=== PATIENT | female | born 1955 | race Caucasian/White ===

== ENCOUNTER → 2016-08-01 | Outpatient (CLI) | payer BC ==
[~2016-08-01] MED LIST: ALBUAER2 INH; ASPI81TA28 PO; ATOR-26 PO; DIVA500T5 PO; DPKSR500 PO; GLC/500 PO; IMDSR60 PO; ISOS120T5 PO; LEVO1TAB33 PO; LISI-729 PO; METO25TA56 PO; NTRGSL/4 UT; VNTHFA/IN INH; ZPAK PO
[2016-08-01 12:36] LABS: ALT/SGPT 26 U/L (12-78); AST/SGOT 18 U/L (15-37); BLOOD UREA NITROGEN 8 mg/dl (7-18); BUN/CREATININE RATIO 10.3 (10-20); CALCIUM 8.9 mg/dl (8.5-10.1); CARBON DIOXIDE 30 mmol/L (21-32); CHLORIDE 109 mmol/L (98-107); CHOLESTEROL 130 mg/dl (0-200); CREATININE 0.77 mg/dl (0.60-1.20); GLUCOSE 107 mg/dl (70-99); POTASSIUM 4.2 mmol/L (3.5-5.1); SODIUM 145 mmol/L (136-145)
[2016-08-01 12:42] LABS: ALB/GLOB RATIO 1.1 (0.9-2); ALKALINE PHOSPHATASE 48 U/L (45-117); CHOLESTEROL/HDL RATIO 2.5; HDL CHOLESTEROL 52 mg/dl; LDL CHOLESTEROL CALCULATED 60 mg/dl; TRIGLYCERIDES 90 mg/dl (0-150); VERY LOW DENSITY LIPOPROT CALC 18 mg/dl
[2016-08-01 13:16] LABS: ESTIMATED AVERAGE GLUCOSE 140 mg/dl; HA1C FLAG Normal (Normal)
[2016-08-03 16:30] LABS: GLIADIN DEAMIDATED IgA AB 2 UNITS (<20); GLIADIN DEAMIDATED IgG AB 2 UNITS (<20)
== END | disposition home or self-care (01) ==
LOC: C.LAB1850 09:51
PROVIDERS: ATTEND Family Medicine
DX: D47.2 Monoclonal gammopathy (principal); E78.5 Hyperlipidemia, unspecified; I10 Essential (primary) hypertension; E11.9 Type 2 diabetes mellitus without complications; D80.2 Selective deficiency of immunoglobulin A [IgA]

== ENCOUNTER 2016-09-04 07:10 | Emergency (ER) | payer BC ==
[~2016-09-04 07:10] MED LIST changes: -DIVA500T5 PO; -ISOS120T5 PO; -VNTHFA/IN INH; -ZPAK PO
[2016-09-04] MEDS ORDERED: ASPIRIN 324 MG CHEW PO STA (07:24)
[2016-09-04] MEDS ORDERED: MoRPHine SULFATE 4 MG/ML 1 ML CARP\\VIAL IV PRN (07:30)
[2016-09-04] MEDS ORDERED: NITROGLYCERIN 0.4 MG SL PER TAB CHARGE SL PRN (07:30)
[2016-09-04 07:39] LABS: BASO % 0.2 %; BASO ABS # 0.01 K/uL (0-0.2); COMPLETE YES; EOS % 2.4 %; HEMATOCRIT 39.5 % (37-47); LYMPH % 35.3 %; LYMPH ABS # 2.25 K/uL (1.2-3.4); MEAN CELL VOLUME 89.8 fL (80-100); MEAN CORPUSCULAR HEMOGLOBIN 29.3 pg (25-34); MEAN CORPUSCULAR HGB CONC 32.7 g/dl (32-36); MEAN PLATELET VOLUME 10.8 fL (7.4-10.4); MONO % 8.5 %; NEUT % 53.6 %; PLATELET COUNT 182 K/uL (130-400); WHITE BLOOD COUNT 6.37 K/uL (4.8-10.8)
[2016-09-04] MEDS ORDERED: ASPIRIN 81 MG CHEW ONE (07:40)
--- NOTE | 2016-09-04 07:45 | EMERGENCY ROOM VISIT NOTE ---
History First contact with patient: 07:13 Chief Complaint: CHEST PAIN Stated Complaint: CHEST PAIN,LEFT ARM NUMBNESS History of Present Illness The patient is a 60 year old female who presents to the Emergency Room with complaints of chest pain that woke her from sleep at 5 AM today. She describes the pain as a dull ache, across the entire front of the chest, radiating into her left shoulder and down the arm, constant, 6/10. She did take all of her morning meds including a baby aspirin, and also took one sublingual nitroglycerin, she reports this did not improve her pain. She has associated nausea and sweats, denies shortness of breath, dizziness, syncope, vomiting. 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 She is followed by Dr. Sanchez for cardiology. Review of Systems GENERAL: Denies fevers, chills, malaise, fatigue, unintentional weight changes. HEENT: Denies dizziness, visual problems, hearing loss, tinnitus. Denies difficulty swallowing or oral lesions. PULMONARY: Denies cough, shortness of breath, sputum production or hemoptysis. CARDIOVASCULAR: + Chest pain. Denies palpitations, dyspnea on exertion, orthopnea or peripheral edema. GASTROINTESTINAL: + Nausea. Denies diarrhea, constipation, vomiting, or abdominal pain. GENITOURINARY: Denies dysuria, frequency, urgency or nocturia. NEUROLOGIC: Denies history of epilepsy, CVA, TIA or chronic headaches. MUSCULOSKELETAL: Denies history of joint tenderness/swelling. SKIN: Denies rashes or lesions. PSYCHIATRIC: Denies history of depression or mental illness. ENDOCRINE: Denies history of diabetes, thyroid disorders, abnormal hair growth or sexual dysfunction. Past Medical/Surgical History Medical Problems: (1) CHOLELITH W CHOLECYS NEC (2) DEPRESSIVE DISORDER NEC (3) Generalized epilepsy (4) TOBACCO USE DISORDER Family History FH: heart disease Social History Smoking Status: Unknown if Ever Smoked Alcohol Use: none Marital Status: Occupation Status: employed Current/Historical Medications Scheduled Albuterol Hfa (Ventolin Hfa), 2-4 PUFFS INH Q4H Aspirin (Aspirin Ec), 81 MG PO DAILY Atorvastatin (Lipitor), 80 MG PO DAILY Azithromycin (Azithromycin), 1 DOSE PO UD Divalproex Sodium (Depakote Delay Rel), 500 MG PO BID Isosorbide Mononitrate Ext Rel (Imdur Ext Rel), 120 MG PO DAILY Lisinopril (Zestril), 2.5 MG PO DAILY Metformin Hcl (Glucophage), 500 MG PO BID Metoprolol Tartrate (Lopressor) (Lopressor), 25 MG PO BID Nitroglycerin (Nitrostat), 0.4 MG UT prn Allergies Coded Allergies: Amoxicillin (Unverified Allergy, Intermediate, RASH, 09/04/16) Clavulanic Acid (Unverified Allergy, Intermediate, RASH, 09/04/16) Hydrocodone (Unverified Allergy, Intermediate, N/V/D AND ITCHY, 09/04/16) Sulfa Antibiotics (Verified Allergy, Unknown, ., 09/04/16) Aspirin (Verified Adverse Reaction, Unknown, Takes Depakote (POTENTIAL DRUG INTERACTION), 09/04/16) Physical Exam Vital Signs Date Time Temp Pulse Resp B/P Pulse Ox O2 Delivery O2 Flow Rate FiO2 09/04/16 13:44 36.6 70 18 115/69 96 09/04/16 11:47 70 18 115/69 96 Nasal Cannula 2.0 09/04/16 09:00 68 18 126/79 93 Nasal Cannula 2.0 09/04/16 08:02 96 Nasal Cannula 2.0 09/04/16 08:01 71 18 134/79 96 Nasal Cannula 2.0 09/04/16 07:55 74 09/04/16 07:50 93 Room Air 09/04/16 07:49 73 18 133/79 93 Room Air 09/04/16 07:43 70 18 138/84 93 Room Air 09/04/16 07:21 95 Room Air 09/04/16 07:16 36.6 76 20 169/84 94 Room Air Physical Exam CONSTITUTIONAL: No acute distress. Well appearing and well nourished. Alert and oriented X 4 with normal affect. HEENT: Normocephalic, atraumatic. Pupils equal, round and reactive to light, EOMI. TMs normal. Pharynx normal. Moist mucous membranes. NECK: Supple, full active range of motion without discomfort. RESPIRATORY: Clear to auscultation bilaterally with no wheezing, crackles, rhonchi or stridor. Equal expansion bilaterally. CARDIOVASCULAR: Regular rate and rhythm with no rubs or gallops. + 2/6 systolic murmur heard best at the right sternal border. Normal peripheral perfusion. No edema. GASTROINTESTINAL: Soft, nontender, nondistended. Bowel sounds present in all quadrants. MUSCULOSKELETAL: Full range of motion of all joints without discomfort. INTEGUMENTARY: No rash or other significant dermatologic conditions noted. NEUROLOGIC: Cranial nerves II-XII grossly intact. No focal neurologic deficits noted. Medical Decision & Procedures ER Provider Diagnostic Interpretation: CHEST ONE VIEW PORTABLE CLINICAL HISTORY: Atypical chest pain COMPARISON STUDY: 06/04/2015 FINDINGS: The cardiac and mediastinal contours are normal. There is no evidence of focal pulmonary consolidation. There is no evidence of failure. No pleural effusions are visualized.[ Differential attenuation of the hemithoraces is felt to be related to technical factors. IMPRESSION: AP portable study. No acute findings. Laboratory Results 09/04/16 07:20 Red Blood Count 4.40, Mean Corpuscular Volume 89.8, Mean Corpuscular Hemoglobin 29.3, Mean Corpuscular Hemoglobin Concent 32.7, Mean Platelet Volume 10.8, Neutrophils (%) (Auto) 53.6, Lymphocytes (%) (Auto) 35.3, Monocytes (%) (Auto) 8.5, Eosinophils (%) (Auto) 2.4, Basophils (%) (Auto) 0.2, Neutrophils # (Auto) 3.42, Lymphocytes # (Auto) 2.25, Monocytes # (Auto) 0.54, Eosinophils # (Auto) 0.15, Basophils # (Auto) 0.01 09/04/16 07:20 Test 09/04/16 07:20 09/04/16 11:31 White Blood Count 6.37 K/uL (4.8-10.8) Red Blood Count 4.40 M/uL (4.2-5.4) Hemoglobin 12.9 g/dL (12.0-16.0) Hematocrit 39.5 % (37-47) Mean Corpuscular Volume 89.8 fL (80-100) Mean Corpuscular Hemoglobin 29.3 pg (25-34) Mean Corpuscular Hemoglobin Concent 32.7 g/dl (32-36) Platelet Count 182 K/uL (130-400) Mean Platelet Volume 10.8 fL (7.4-10.4) Neutrophils (%) (Auto) 53.6 % Lymphocytes (%) (Auto) 35.3 % Monocytes (%) (Auto) 8.5 % Eosinophils (%) (Auto) 2.4 % Basophils (%) (Auto) 0.2 % Neutrophils # (Auto) 3.42 K/uL (1.4-6.5) Lymphocytes # (Auto) 2.25 K/uL (1.2-3.4) Monocytes # (Auto) 0.54 K/uL (0.11-0.59) Eosinophils # (Auto) 0.15 K/uL (0-0.5) Basophils # (Auto) 0.01 K/uL (0-0.2) RDW Standard Deviation 45.6 fL (36.4-46.3) RDW Coefficient of Variation 13.8 % (11.5-14.5) Immature Granulocyte % (Auto) 0.0 % Immature Granulocyte # (Auto) 0.00 K/uL (0.00-0.02) Prothrombin Time 10.6 SECONDS (9.0-12.0) Prothromb Time International Ratio 1.0 (0.9-1.1) Activated Partial Thromboplast Time 24.5 SECONDS (21.0-31.0) Partial Thromboplastin Ratio 0.9 Anion Gap 7.0 mmol/L (3-11) Estimated GFR () 90.1 Estimated GFR (Non- 77.8 BUN/Creatinine Ratio 20.3 (10-20) Calcium Level 8.5 mg/dl (8.5-10.1) Total Bilirubin 0.5 mg/dl (0.2-1) Direct Bilirubin 0.1 mg/dl (0-0.2) Aspartate Amino Transf (AST/SGOT) 13 U/L (15-37) Alanine Aminotransferase (ALT/SGPT) 22 U/L (12-78) Alkaline Phosphatase 46 U/L (45-117) Pro-B-Type Natriuretic Peptide 256 pg/ml (0-900) Total Protein 6.5 gm/dl (6.4-8.2) Albumin 3.6 gm/dl (3.4-5.0) Lipase 199 U/L (73-393) Bedside Troponin I 0.000 ng/ml (0-0.045) Medications Administered Medications (Trade) Dose Ordered Sig/Crescencio Route Start Time Stop Time Status Last Admin Dose Admin Nitroglycerin (Nitrostat Tab) 0.4 mg Q5M PRN SL 09/04/16 07:30 09/04/16 14:12 DC 09/04/16 07:42 0.4 MG Morphine Sulfate (MoRPHine SULFATE INJ) 4 mg Q1H PRN IV 09/04/16 07:30 09/04/16 14:12 DC 09/04/16 07:59 4 MG Aspirin (Aspirin Chew) 243 mg STK-MED ONCE .ROUTE 09/04/16 07:40 09/04/16 07:41 DC 09/04/16 07:42 243 MG ECG Indication: chest pain Rate (beats per minute): 76 Rhythm: normal sinus Findings: T-wave inversion (isolated to lead III), no ectopy Change: no significant change (06/05/2015) Medical Decision CC: Patient presenting with complaint of chest pain Interpretation of Labs: POC troponins x 3 are negative. Differential Diagnosis: Includes, but not limited to acute coronary syndrome, PE , pneumothorax, pericarditis, myocarditis, endocarditis, anxiety, musculoskeletal pain, GERD, costochondritis, pneumonia, among others. Summary: Patient was evaluated at bedside, history of physical exam performed. She is alert and in no acute distress. She complains of 6/10 dull aching chest pain that radiates down the left arm. Orders were placed at bedside for labs, EKG, chest x-ray to evaluate for acute coronary syndrome. Patient discussed with Dr. Hyatt, who agrees with my assessment and plan. Patient reassessed after morphine and SL nitroglycerin, she states the chest pain did not improve after nitroglycerin, but has improved greatly after the morphine, currently rates 2/10. I spoke with Dr. Turner, cardiology, who requested an additional troponin level at this time (11 AM), which will be 6 hours since onset of chest pain. Patient again reassessed, now reports her chest pain is fully resolved. Repeat troponin at 6 hours after onset of pain is also negative. I discussed with Dr. Turner, who has seen the patient, he does not believe stress test is warranted at this time, recommends discharge home and outpatient follow-up. Patient updated on all results and plan for discharge, she verbalized understanding and is in agreement. Stable at time of discharge. Consults Time Called: 1100 Consulting Physician: Dr. Turner, Cardiology Patient was seen and evaluated by Dr. Turner, he feels the patient's chest pain is atypical and not the way that she presented with her previous WI. He also feels that she has been adequately ruled out with 3 negative troponins and a negative EKG today and may be safely discharged home with outpatient follow-up. Impression Primary Impression: Acute chest pain Departure Information Dispostion Home / Self-Care Condition GOOD Referrals Lawanda Parson DO (PCP) Patient Instructions ED Chest Pain Atypical Unkn Cause, My [facility] Additional Instructions Follow-up with your PCP in the next few days. Plan to follow-up with your cnmt as well. Please return to the ER for worsening symptoms, including return or worsening chest pain, shortness of breath, palpitations, severe dizziness or passing out, vomiting or coughing up blood, fever/chills/feeling ill, or any other concerns.
[2016-09-04 07:47] LABS: PARTIAL THROMBOPLASTIN RATIO 0.9; PROTHROMBIN TIME (PATIENT) 10.6 SECONDS (9.0-12.0)
[2016-09-04] MEDS ORDERED: ZPAK PO (07:49)
[2016-09-04] MEDS ORDERED: ISOS120T5 PO (07:51)
[2016-09-04] MEDS ORDERED: DIVA500T5 PO (07:51)
[2016-09-04] MEDS ORDERED: VNTHFA/IN INH (07:51)
--- NOTE | 2016-09-04 07:54 | DIAGNOSTIC IMAGING REPORT ---
CHEST ONE VIEW PORTABLE CLINICAL HISTORY: Atypical chest pain COMPARISON STUDY: 06/04/2015 FINDINGS: The cardiac and mediastinal contours are normal. There is no evidence of focal pulmonary consolidation. There is no evidence of failure. No pleural effusions are visualized.[ Differential attenuation of the hemithoraces is felt to be related to technical factors. IMPRESSION: AP portable study. No acute findings. Electronically signed by: Bo Breen M.D. 09/04/2016 7:52 AM Dictated Date/Time: 09/04/2016 7:52 AM
[2016-09-04 07:57] LABS: ALT/SGPT 22 U/L (12-78); AST/SGOT 13 U/L (15-37); BLOOD UREA NITROGEN 17 mg/dl (7-18); BUN/CREATININE RATIO 20.3 (10-20); CALCIUM 8.5 mg/dl (8.5-10.1); CARBON DIOXIDE 29 mmol/L (21-32); CHLORIDE 110 mmol/L (98-107); CREATININE 0.82 mg/dl (0.60-1.20); GLUCOSE 133 mg/dl (70-99); SODIUM 146 mmol/L (136-145)
[2016-09-04 08:02] VITALS: O2SAT 96
[2016-09-04 08:02] LABS: ALKALINE PHOSPHATASE 46 U/L (45-117)
[2016-09-04 13:44] VITALS: BP 115/69; PULSE 70; TEMP 36.6; O2SAT 96
== END 2016-09-04 13:46 | disposition home or self-care (01) ==
LOC: C.EDB 07:12
DX: R07.89 Other chest pain (principal); F32.9 Major depressive disorder, single episode, unspecified; G40.909 Epilepsy, unspecified, not intractable, without status epilepticus; F17.200 Nicotine dependence, unspecified, uncomplicated; Z79.82 Long term (current) use of aspirin; Z79.4 Long term (current) use of insulin; Z79.899 Other long term (current) drug therapy; Z88.1 Allergy status to other antibiotic agents; Z88.2 Allergy status to sulfonamides; Z88.5 Allergy status to narcotic agent; Z88.6 Allergy status to analgesic agent; Z88.8 Allergy status to other drugs, medicaments and biological substances; Z82.49 Family history of ischemic heart disease and other diseases of the circulatory system

== ENCOUNTER 2017-03-02 15:33 | Emergency (ER) | payer OTHER, BC ==
[~2017-03-02] VITALS: Ht 167.6 cm; Wt 110.3 kg
[~2017-03-02 15:33] MED LIST changes: -ALBUAER2 INH; +DIVA500T5 PO; -DPKSR500 PO; -IMDSR60 PO; +ISOS120T5 PO; -LEVO1TAB33 PO; +VNTHFA/IN INH; +ZPAK PO
[2017-03-02 15:48] VITALS: BP 174/93; TEMP 36.5; Ht 167.6 cm; Wt 110.3 kg
[2017-03-02] MEDS ORDERED: LIDOCAINE/EPINEPHRINE 1% 20 ML VIAL INFIL ONE (16:15)
[2017-03-02] MEDS ORDERED: DIPHTHERIA/TETANUS/PERTUSSIS 0.5 ML SYR/VIAL IM. ONE (16:15)
--- NOTE | 2017-03-02 16:59 | EMERGENCY ROOM VISIT NOTE ---
ED Visit Note First contact with patient: 15:52 CHIEF COMPLAINT: Arm laceration HISTORY OF PRESENT ILLNESS: This 61 year old female patient presents to the emergency department approximately 30 minutes after they cut the right arm on a broken soup mug which was in the trash. 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 She states she was picking up a bag to take out trash, when the bowl cut through the bag and cut her arm. This incident did happen at work. There is significant bleeding and there is mild pain. The patient denies any other injuries. The patient rates the pain as constant and 5/10. The patient's tetanus shot is not up to date. REVIEW OF SYSTEMS: A 6 system review of systems was completed with positives and pertinent negatives listed in the HPI. ALLERGIES: Augmentin, Hydrocodone, Sulfa MEDICATIONS: Please see list. PMH: Please see list. SOCIAL HISTORY: The patient lives locally with family. She denies drug, alcohol , tobacco use. PHYSICAL EXAM: Vital Signs: Reviewed Nurse's notes, vital signs stable. GENERAL : This is a 61-year-old white female, in no acute distress, well-developed, well -nourished. Skin: There is a 3 cm long laceration on the anterior aspect of the forearm. The edges gape apart without retraction. There is no foreign material in the wound and it looks clean. There is mild active bleeding. No deep structures such as tendons, bones, or significant blood vessels are seen in the base of the wound. Strength 5/5 of the right upper extremity. Capillary refill less than two seconds. Normal sensation to light and sharp touch. EMERGENCY DEPARTMENT COURSE: I examined the patient. Verbal consent was obtained to perform the procedure. Using sterile technique the wound was cleansed with Betadine. The area was sterilely draped. 6 ml of 1% lidocaine with epinephrine was used to anesthetize the laceration on the arm. Once the patient was anesthetized, the wound was copiously irrigated under pressure with sterile saline. The wound was explored and was as described above. The laceration was repaired using 9 simple interrupted 5-0 nylon sutures with the wound edges being well approximated. The patient tolerated the procedure well. Hemostasis was achieved. The area was cleaned with sterile saline and dressed with bacitracin ointment and bandage. The patient was given Tdap immunization. The patient was discharged home in good condition. I attest that I have personally reviewed the patient's current medication list. Patient was found to have normal blood pressure on screening and does not require follow-up. DIFFERENTIAL DIAGNOSIS: Laceration, abrasion, avulsion, tendon or muscle injury , and others DIAGNOSIS: Arm laceration Problem List Medical Problems: (1) CHOLELITH W CHOLECYS NEC Status: Resolved (2) DEPRESSIVE DISORDER NEC Status: Chronic (3) Generalized epilepsy Status: Chronic (4) TOBACCO USE DISORDER Status: Chronic Current/Historical Medications Scheduled Aspirin (Aspirin Ec), 81 MG PO DAILY Atorvastatin (Lipitor), 80 MG PO DAILY Divalproex Sodium (Depakote Delay Rel), 500 MG PO BID Isosorbide Mononitrate Ext Rel (Imdur Ext Rel), 120 MG PO DAILY Lisinopril (Zestril), 2.5 MG PO DAILY Metformin Hcl (Glucophage), 500 MG PO BID Metoprolol Tartrate (Lopressor) (Lopressor), 25 MG PO BID Nitroglycerin (Nitrostat), 0.4 MG UT prn Scheduled PRN Albuterol Hfa (Ventolin Hfa), 2-4 PUFFS INH Q4H PRN for SOB/Wheezing Allergies Coded Allergies: Amoxicillin (Unverified Allergy, Intermediate, RASH, 09/04/16) Clavulanic Acid (Unverified Allergy, Intermediate, RASH, 09/04/16) Hydrocodone (Unverified Allergy, Intermediate, N/V/D AND ITCHY, 09/04/16) Sulfa Antibiotics (Verified Allergy, Unknown, ., 09/04/16) Aspirin (Verified Adverse Reaction, Unknown, Takes Depakote (POTENTIAL DRUG INTERACTION), 09/04/16) Vital Signs Date Time Temp Pulse Resp B/P (MAP) Pulse Ox O2 Delivery O2 Flow Rate FiO2 03/02/17 17:20 70 20 97 Room Air 03/02/17 15:48 36.5 87 20 174/93 95 Room Air Medications Administered Medications (Trade) Dose Ordered Sig/Crescencio Route Start Time Stop Time Status Last Admin Dose Admin Lidocaine/ Epinephrine (Xylocaine/Epine 1% Inj) 20 ml ONE ONCE INFIL 03/02/17 16:15 03/02/17 16:16 DC 03/02/17 16:20 20 ML Diphtheria/ Pertussis/Tetanus Vacc (Adacel Inj) 0.5 ml ONCE ONCE IM. 03/02/17 16:15 03/02/17 16:16 DC 03/02/17 17:03 0.5 ML Departure Information Impression Primary Impression: Forearm laceration Additional Impression: Encounter related to worker's compensation claim Dispostion Home / Self-Care Condition GOOD Referrals Gabriella Fuentes C.R.N.P. (PCP) Patient Instructions ED Laceration Ext Sutr Stap Tape, [facility] Additional Instructions You have received 9 sutures on your right forearm. These sutures are NOT dissolvable and WILL need to be removed by a health care provider in 8-10 days. You can return to the Emergency Department or contact your Workman's compensation provider to have the sutures removed. Proper wound care is essential for adequate wound healing and infection prevention. You can shower and clean the wound with soap and water. Do not scour over the wound, pat dry with a towel. Do not submerse the wound (i.e. bathe or dish wash) until the sutures have been removed. You can use an antibiotic ointment with a dressing over the wound for the next 3-4 days. After this time you may leave the wound dry and open to the air. If crust develops over the wound you can use a Q-tip to apply a 1:1 peroxide:water solution to clean the wound. Look for signs of infection of the wound including: increased pain, swelling, foul discharge, streaking, or increased temperature. If any of these are noticed you should return to the Emergency Department for further assessment and treatment. As with any laceration you may have received nerve damage to the surrounding tissues. This damage may or may not be permanent. You should keep the area covered with sunscreen for the first 6 months to 1 year when at risk for exposure to help minimize scarring. Please avoid significant lifting with the right arm until the wound heals. No lifting >5 pounds with the affected arm until the wound has healed or otherwise instructed by Workman's Compensation. You can also use scar reducing creams or Vitamin E oil to help minimize scarring. For pain control, you can use the following [id number] medicines (if >12 yo): Ibuprofen(Motrin, Advil) may be used for fever or pain. Use 600mg every six hours as needed. Take with food. Avoid using more than 2400mg in a 24 hour period. Do not use 2400mg per day for more than three consecutive days without physician direction. Prolonged inappropriate use can lead to stomach upset or ulcers. (AND/OR) Acetaminophen(Tylenol) may be used for fever or pain. Use 1000mg every six hours as needed. Avoid using more than 3000mg in a 24 hour period. Return to the emergency department if your symptoms worsen despite treatment course outlined above. Problem Qualifiers Primary Impression: Forearm laceration Encounter type: initial encounter Laterality: right Qualified Codes: S51.811A - Laceration without foreign body of right forearm, initial encounter
[2017-03-02 17:20] VITALS: PULSE 70; O2SAT 97
== END 2017-03-02 17:21 | disposition home or self-care (01) ==
LOC: C.EDB 15:33 → C.EDD 17:21
DX: Z02.89 Encounter for other administrative examinations (principal); S51.811A Laceration without foreign body of right forearm, initial encounter; W26.8XXA Contact with other sharp object(s), not elsewhere classified, initial encounter; Y93.89 Activity, other specified; Y99.0 Civilian activity done for income or pay; Y92.214 College as the place of occurrence of the external cause; G40.909 Epilepsy, unspecified, not intractable, without status epilepticus; Z23 Encounter for immunization; Z79.82 Long term (current) use of aspirin; Z79.899 Other long term (current) drug therapy

== ENCOUNTER 2020-08-26 13:13 | Observation (INO) ==
[2020-08-26] MEDS ORDERED: MoRPHine SULFATE 4 MG/ML 1 ML CARP\\VIAL IV STA ×2 (13:27→15:09)
[2020-08-26] MEDS ORDERED: ONDANSETRON INJ 2 MG/ML 2 ML VIAL IV STA ×2 (13:27→15:09)
[2020-08-26] MEDS ORDERED: SODIUM CHLORIDE 0.9% 500 ML IV STA (13:27)
--- NOTE | 2020-08-26 13:31 | Emergency Department Note ---
History of Present Illness General Chief complaint: Abdominal Pain Stated complaint: AB PAIN Time Seen by Provider: 08/26/20 13:21 Source: patient History of Present Illness Provider complaint: Abdominal pain Onset (ago): hour(s) Location: abdomen and right Radiation: back Pain Consistency: + constant Maximum Pain Intensity: 10 Quality: + sharp Exacerbated By: + other (Heating pad) Associated symptoms: + nausea/vomiting (Nausea no vomiting); no chest pain, no cough, no fever/chills and no shortness of breath This is a 64-year-old female who presents with abdominal pain starting 2 hours ago. The patient states that she was fine this morning. She developed pain near her umbilicus and then it radiated into her right lower quadrant and to her back. She describes it as sharp. She rates it a 10 out of 10 in severity. It is worse when she tried to put a heating pad on it. It is associated with nausea. She denies any fever, vomiting, cough or cold symptoms, chest pain, shortness of breath, abnormal vaginal discharge or bleeding, urinary symptoms or hematuria. The patient has chronic diarrhea which is unchanged from celiac disease. She does state that this pain feels similar to when she had an ovarian cyst years ago as well as when she had a problem with her gallbladder. She still has her appendix. She denies any history of kidney stones. Home Medications Medication Instructions Recorded Confirmed Type aspirin 81 mg PO QAM 09/09/18 08/26/20 History fluticasone propionate [Flonase 1 spray INTRANASAL DAILY PRN 09/09/18 08/26/20 History Allergy Relief] nitroglycerin 0.4 mg sublingual 0.4 mg SUBLINGUAL UD PRN #25 tab 10/04/19 08/26/20 Rx tablet metoprolol tartrate 50 mg tablet 50 mg PO BID #180 tab 10/10/19 08/26/20 Rx albuterol sulfate 90 mcg/actuation 2 puff INHALATION Q4 PRN #6.7 gm 11/23/19 08/26/20 Rx aerosol inhaler isosorbide mononitrate 120 mg 120 mg PO QAM #90 tab 04/09/20 08/26/20 Rx tablet,extended release 24 hr metformin 500 mg tablet 500 mg PO BID #60 tab 04/11/20 08/26/20 Rx divalproex 500 mg tablet,delayed 500 mg PO BID #60 tab 05/21/20 08/26/20 Rx release atorvastatin 80 mg PO QAM 05/29/20 08/26/20 History lisinopril 5 mg PO QAM 05/29/20 08/26/20 History Allergies Allergy/AdvReac Type Severity Reaction Status Date / Time amoxicillin Allergy Intermediate RASH Verified 08/26/20 14:12 clavulanic acid Allergy Intermediate RASH Verified 08/26/20 14:12 hydrocodone Allergy Intermediate N/V/D AND Verified 08/26/20 14:12 ITCHY Sulfa (Sulfonamide Allergy Mild Rash Verified 08/26/20 14:12 Antibiotics) Past Med/Surg History Medical History Alcohol abuse sober 30 yrs Anxiety no meds Celiac disease diagnosed 2 yrs ago Chronic obstructive pulmonary disease rare res inh use Coronary artery disease follows Dr. 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 Sanchez Pulmonary emphysema Selective immunoglobulin A deficiency pt unaware Surgical History History of cardiac cath 2012--no stents placed History of cholecystectomy History of colonoscopy History of dilatation and curettage History of tooth extraction History of wisdom tooth extraction S/P left cataract extraction Family History Brother Family history of diabetes mellitus Myocardial infarction Hx of CABG Grandfather (Paternal) Family history of diabetes mellitus Myocardial infarction Heart disease Mother Ovarian cancer Father Parkinsons disease Gout Macular degeneration Other No family history of adverse response to anesthesia Denies family history of Prostate cancer Breast cancer Colorectal cancer Social History Smoking Status: Never smoker Second Hand Exposure: Yes ( smokes); Hx Alcohol Use: No Hx Substance Use: No Preferred Language: [place] Communication Ability: Effective Coding Manager Required: No Beliefs That Will Affect Care: None marital status: Current Living Situation: Spouse Current Living Situation Comment: Lives with and daughter Feels Safe at Home: Yes Childhood Exposure to Second-Hand Smoke: No Assistive Devices: None Review of Systems See HPI for pertinent positives & negatives. and A total of 10 systems reviewed and were otherwise negative Physical Exam Vital Signs Vital Signs - 24 hr 08/26/20 13:16 08/26/20 13:43 08/26/20 14:33 Temperature 36.3 C L Temperature Source Temporal Artery Scan Pulse Rate 76 72 73 Pulse Rate [Right Finger] Pulse Rate from SpO2 Sensor 72 73 Pulse Rhythm [Right Finger] Pulse Strength [Right Finger] Respiratory Rate 20 24 20 Respiratory Effort / Characteristics Respiratory Depth Respiratory Pattern Blood Pressure 181/110 H 186/94 H 179/97 H Blood Pressure [Right Arm] Blood Pressure Mean 133 124 124 Blood Pressure Mean [Right Arm] Blood Pressure Position [Right Arm] Pulse Oximetry 96 96 95 Oxygen Delivery Method Room Air Oxygen Flow Rate Sepsis Recent Fever Within 48 Hours No Sepsis New/Unexplained Change in Mental Status N/A Sepsis Action Taken by Nursing No Action Required 08/26/20 15:30 08/26/20 15:52 08/26/20 16:00 Temperature Temperature Source Pulse Rate 83 79 80 Pulse Rate [Right Finger] Pulse Rate from SpO2 Sensor 83 80 79 Pulse Rhythm [Right Finger] Pulse Strength [Right Finger] Respiratory Rate 20 18 19 Respiratory Effort / Characteristics Respiratory Depth Respiratory Pattern Blood Pressure 169/86 H 169/86 H Blood Pressure [Right Arm] Blood Pressure Mean 113 113 Blood Pressure Mean [Right Arm] Blood Pressure Position [Right Arm] Pulse Oximetry 94 94 93 Oxygen Delivery Method Oxygen Flow Rate Sepsis Recent Fever Within 48 Hours Sepsis New/Unexplained Change in Mental Status Sepsis Action Taken by Nursing 08/26/20 16:30 08/26/20 16:33 08/26/20 17:00 Temperature Temperature Source Pulse Rate 77 74 Pulse Rate [Right Finger] Pulse Rate from SpO2 Sensor 78 74 Pulse Rhythm [Right Finger] Pulse Strength [Right Finger] Respiratory Rate 13 17 Respiratory Effort / Characteristics Respiratory Depth Respiratory Pattern Blood Pressure 172/82 H Blood Pressure [Right Arm] Blood Pressure Mean 112 Blood Pressure Mean [Right Arm] Blood Pressure Position [Right Arm] Pulse Oximetry 87 L 92 94 Oxygen Delivery Method Nasal Cannula Nasal Cannula Oxygen Flow Rate 3 3 Sepsis Recent Fever Within 48 Hours Sepsis New/Unexplained Change in Mental Status Sepsis Action Taken by Nursing 08/26/20 18:41 Temperature Temperature Source Pulse Rate Pulse Rate [Right Finger] 74 Pulse Rate from SpO2 Sensor Pulse Rhythm [Right Finger] Regular Pulse Strength [Right Finger] Normal Respiratory Rate 16 Respiratory Effort / Characteristics Non-Labored Respiratory Depth Normal Respiratory Pattern Regular Blood Pressure Blood Pressure [Right Arm] 142/74 H Blood Pressure Mean Blood Pressure Mean [Right Arm] 96 Blood Pressure Position [Right Arm] Sitting Pulse Oximetry 97 Oxygen Delivery Method Nasal Cannula Oxygen Flow Rate 3 Sepsis Recent Fever Within 48 Hours Sepsis New/Unexplained Change in Mental Status Sepsis Action Taken by Nursing Constitutional: Vital signs reviewed. Eyes: Pupils are equal round reactive to light. Conjunctiva are noninjected. ENT: Pharynx is clear without erythema or exudate. Mucous membranes are moist. Neck supple without meningeal signs. Respiratory: Clear to auscultation bilaterally. Breath sounds are equal bilaterally. Cardiovascular: Regular rate and rhythm. No rubs or gallops. GI: Soft, nondistended with tenderness in the right lower quadrant. No guarding. Bowel sounds are present. Musculoskeletal: No peripheral edema. No CVA tenderness. Integumentary: No cyanosis. or jaundice. Neurological: The patient is awake and alert. No focal deficits. Psychiatric: Anxious. Course Administered Medications Discontinued Medications Sodium Chloride (Nss) 500 mls @ 999 mls/hr IV .Q31M STA Stop: 08/26/20 13:57 Last Infusion: 08/26/20 15:03 Dose: 0 mls/hr Documented by: [id number] Admin: 08/26/20 13:45 Dose: 999 mls/hr Documented by: [id number] Ioversol (Optiray 300 100ml) 90 ml IV ONCE ONE Stop: 08/26/20 14:14 Last Admin: 08/26/20 14:14 Dose: 90 ml Documented by: [id number] Ketorolac Tromethamine (Ketorolac 30 Mg/Ml Vial) 10 mg IV NOW STA Stop: 08/26/20 16:58 Last Admin: 08/26/20 17:12 Dose: 10 mg Documented by: [id number] Morphine Sulfate (Morphine Sulfate 4 Mg/Ml 1 Ml Carp\Vial) 4 mg IV NOW STA Stop: 08/26/20 13:28 Last Admin: 08/26/20 13:47 Dose: 4 mg Documented by: [id number] Morphine Sulfate (Morphine Sulfate 4 Mg/Ml 1 Ml Carp\Vial) 4 mg IV NOW STA Stop: 08/26/20 15:10 Last Admin: 08/26/20 15:17 Dose: 4 mg Documented by: [id number] Ondansetron HCl (Ondansetron Inj 2 Mg/Ml 2 Ml Vial) 4 mg IV NOW STA Stop: 08/26/20 13:28 Last Admin: 08/26/20 13:46 Dose: 4 mg Documented by: [id number] Ondansetron HCl (Ondansetron Inj 2 Mg/Ml 2 Ml Vial) 4 mg IV NOW STA Stop: 08/26/20 15:10 Last Admin: 08/26/20 15:15 Dose: 4 mg Documented by: [id number] Medical Decision Making Differential Diagnosis Acute appendicitis, abscess, perforation, kidney stone, colitis Medical Records Attestation: I reviewed the patient's medical records. I did perform a limited focused review of portions of the patient's old chart on the electronic medical record. The patient has had no recent pertinent visits to this hospital. The patient had cataract surgery in June of this year. Home Medications Current Medication List: was personally reviewed by me Laboratory Data Attestation: I reviewed the patient's lab results. Result diagrams: 08/26/20 13:41 08/26/20 13:41 Lab Results 08/26/20 08/26/20 08/26/20 Range/Units 13:41 13:41 13:41 WBC 7.81 (4.8-10.8) K/uL RBC 4.45 (4.2-5.4) M/uL Hgb 13.2 (12.0-16.0) g/dL Hct 41.8 (37-47) % MCV 93.9 (80-100) fL MCH 29.7 (25-34) pg MCHC 31.6 L (32-36) g/dL RDW Std Deviation 48.3 H (36.4-46.3) fL RDW Coeff of Marta 14.1 (11.5-14.5) % Plt Count 233 (130-400) K/uL MPV 10.9 H (7.4-10.4) fL Immature Gran % (Auto) 0.3 % Neut % (Auto) 55.2 % Lymph % (Auto) 35.1 % [place] % (Auto) 7.4 % Eos % (Auto) 1.9 % Baso % (Auto) 0.1 % Neut # (Auto) 4.31 (1.4-6.5) K/uL Lymph # (Auto) 2.74 (1.2-3.4) K/uL [place] # (Auto) 0.58 (0.11-0.59) K/uL Eos # (Auto) 0.15 (0-0.5) K/uL Baso # (Auto) 0.01 (0-0.2) K/uL Immature Gran # (Auto) 0.02 (0.00-0.02) K/uL PT 10.0 (9.0-12.0) Seconds INR 1.0 (0.9-1.1) APTT 22.5 (21.0-31.0) Seconds PTT Ratio 0.9 Sodium 144 (136-145) mmol/L Potassium 3.9 (3.5-5.1) mmol/L Chloride 108 H (98-107) mmol/L Carbon Dioxide 30 (21-32) mmol/L Anion Gap 6.0 (3-11) BUN 16 (7-18) mg/dl Creatinine 0.77 (0.6-1.2) mg/dl Est Cr Clr Drug Dosing 100.6 ml/min Est GFR ( Amer) 94.6 Est GFR (Non-Af Amer) 81.6 BUN/Creatinine Ratio 20.7 H (10-20) Glucose 133 H (70-99) mg/dl Calcium 8.6 (8.5-10.1) mg/dl Total Bilirubin 0.4 (0.2-1) mg/dl AST 14 L (15-37) U/L ALT 29 (12-78) U/L Alkaline Phosphatase 48 (45-117) U/L Total Protein 7.1 (6.4-8.2) gm/dl Albumin 3.7 (3.4-5.0) gm/dl Globulin 3.4 (2.5-4.0) gm/dl Albumin/Globulin Ratio 1.1 (0.9-2) Lipase 228 (73-393) U/L Urine Color Urine Appearance (Clear) Urine pH (4.5-7.5) Ur Specific [place] (1.000-1.030) Urine Protein (Negative) Urine Glucose (UA) (Negative) Urine Ketones (Negative) Urine Blood (Negative) Urine Nitrite (Negative) Urine Bilirubin (Negative) Urine Urobilinogen (Negative) Ur Leukocyte Esterase (Negative) Urine WBC (Auto) (0-5) /hpf Urine RBC (Auto) (0-4) /hpf U Hyaline Cast (Auto) (0-5) /lpf U Epithel Cells (Auto) (0-5) /lpf Urine Bacteria (Auto) (Negative) COVID-19 Eval Order SARS-CoV-2 (PCR) (Negative) Influenza Type A (PCR) (Neg) Influenza Type B (PCR) (Neg) RSV (RT-PCR) (Neg) 08/26/20 08/26/20 08/26/20 Range/Units 15:50 17:14 17:14 WBC (4.8-10.8) K/uL RBC (4.2-5.4) M/uL Hgb (12.0-16.0) g/dL Hct (37-47) % MCV (80-100) fL MCH (25-34) pg MCHC (32-36) g/dL RDW Std Deviation (36.4-46.3) fL RDW Coeff of Marta (11.5-14.5) % Plt Count (130-400) K/uL MPV (7.4-10.4) fL Immature Gran % (Auto) % Neut % (Auto) % Lymph % (Auto) % [place] % (Auto) % Eos % (Auto) % Baso % (Auto) % Neut # (Auto) (1.4-6.5) K/uL Lymph # (Auto) (1.2-3.4) K/uL [place] # (Auto) (0.11-0.59) K/uL Eos # (Auto) (0-0.5) K/uL Baso # (Auto) (0-0.2) K/uL Immature Gran # (Auto) (0.00-0.02) K/uL PT (9.0-12.0) Seconds INR (0.9-1.1) APTT (21.0-31.0) Seconds PTT Ratio Sodium (136-145) mmol/L Potassium (3.5-5.1) mmol/L Chloride (98-107) mmol/L Carbon Dioxide (21-32) mmol/L Anion Gap (3-11) BUN (7-18) mg/dl Creatinine (0.6-1.2) mg/dl Est Cr Clr Drug Dosing ml/min Est GFR ( Amer) Est GFR (Non-Af Amer) BUN/Creatinine Ratio (10-20) Glucose (70-99) mg/dl Calcium (8.5-10.1) mg/dl Total Bilirubin (0.2-1) mg/dl AST (15-37) U/L ALT (12-78) U/L Alkaline Phosphatase (45-117) U/L Total Protein (6.4-8.2) gm/dl Albumin (3.4-5.0) gm/dl Globulin (2.5-4.0) gm/dl Albumin/Globulin Ratio (0.9-2) Lipase (73-393) U/L Urine Color Yellow Urine Appearance Clear (Clear) Urine pH 5.0 (4.5-7.5) Ur Specific [place] > 1.045 H (1.000-1.030) Urine Protein Negative (Negative) Urine Glucose (UA) Negative (Negative) Urine Ketones Trace H (Negative) Urine Blood Trace H (Negative) Urine Nitrite Negative (Negative) Urine Bilirubin Negative (Negative) Urine Urobilinogen Negative (Negative) Ur Leukocyte Esterase Negative (Negative) Urine WBC (Auto) 1-5 (0-5) /hpf Urine RBC (Auto) 5-10 H (0-4) /hpf U Hyaline Cast (Auto) 1-5 (0-5) /lpf U Epithel Cells (Auto) 10-20 H (0-5) /lpf Urine Bacteria (Auto) Negative (Negative) COVID-19 Eval Order CovFluRsv at [facility] SARS-CoV-2 (PCR) NEGATIVE (Negative) Influenza Type A (PCR) Negative (Neg) Influenza Type B (PCR) Negative (Neg) RSV (RT-PCR) Negative (Neg) Imaging Data Radiologist's Impression: Abdomen/Pelvis CT 08/26/20 13:27 CT SCAN OF THE ABDOMEN AND PELVIS WITH IV CONTRAST CLINICAL HISTORY: Right lower quadrant abdominal pain. COMPARISON STUDY: Abdominal ultrasound dated 07/23/2011. TECHNIQUE: Following the IV administration of 89 cc of Optiray 300, CT scan of the abdomen and pelvis is performed from the lung bases to the proximal femora. Images are reviewed in the axial, sagittal, and coronal planes. IV contrast was administered without complication. A dose lowering technique was utilized adhering to the principles of ALARA. CT DOSE: 1526.17 mGy.cm FINDINGS: Lung bases: The heart is normal in size and without pericardial effusion. The coronary arteries are densely calcified. There is a small hiatal hernia. Dependent airspace opacities are seen at both lung bases. Liver: The contrast-enhanced liver is normal in size, contour, and attenuation. There is no intrahepatic biliary ductal dilatation. The hepatic veins and portal veins are patent. Gallbladder: Surgically absent noting clips in the gallbladder fossa. Spleen: Normal in size and attenuation. Pancreas: Moderately atrophic and grossly unremarkable. Adrenal glands: Unremarkable. Kidneys: The contrast enhanced kidneys demonstrate mild cortical atrophy. 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 There is a 2 mm obstructing calculus in the distal right ureter below the pelvic inlet seen on image #[id number]. This causes mild right hydroureteronephrosis. There is associated right-sided perinephric stranding. An additional 3 mm nonobstructing calculus is noted in the interpolar right kidney. The kidneys enhance homogeneously. There is no left-sided hydronephrosis. Abdominal vasculature: The abdominal aorta is normal in course and caliber noting moderate to advanced atherosclerotic calcification. Bowel: There is no bowel obstruction. There are small duodenal diverticula. The appendix is well-visualized and normal. Peritoneum: There is no intraperitoneal free air or abdominal ascites. There is a fat-containing umbilical hernia. Lymphadenopathy: None. Pelvic viscera: The bladder is decompressed and appears circumferentially thick walled. The uterus and adnexa are normal as visualized. Skeletal structures: The skeletal structures are osteopenic. There is mild lum bosacral spondylosis. Sclerotic change is noted in the sacroiliac joints. No lytic or blastic lesions are seen. IMPRESSION: 1. There is a 2 mm obstructing calculus in the distal right ureter below the pelvic inlet. This causes mild right hydroureteronephrosis. 2. An additional 3 mm nonobstructing calculus is noted in the right kidney. 3. 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 4. Normal appendix. 5. Dependent airspace opacities are present both lung bases, likely represent scarring/atelectasis. Correlate clinically for evidence of a superimposed infec tious/inflammatory pneumonitis. 6. The bladder is decompressed and appears circumferentially thick walled. Correlate with urinalysis. 7. Additional findings as above. ACT 112: Negative or not required by law. Electronically signed by: Thompson Roberts M.D. 08/26/2020 3:13 PM MDM Narrative I did evaluate the patient as noted above. The patient is presenting with right lower abdominal pain rating to her back starting 2 hours ago. She does have tenderness at McBurney point on examination. IV access was established. I did treat her with normal saline IV as well as morphine and Zofran IV. She states she has no allergy to morphine. I did order a urine analysis. She does not have an infection. I did order and review the patient's blood work as noted in the electronic medical record. Her white count is not elevated. Hemoglobin is 13.2 platelet count is within normal limits. Electrolytes, LFTs and lipase are within normal limits. I did order a CT of the abdomen and pelvis. I did review the images myself as well as the radiology report as described above. She does have a 2 mm distal ureteral stone with hydroureteronephrosis. I did reassess the patient. She is still having pain and was given additional IV morphine and Zofran. On reassessment she is still having pain. She is very drowsy now and her O2 saturation has dropped on room air she was placed on supplemental oxygen. This is likely due to the opiates that she was given. She is not short of breath. Her O2 saturation goes up immediately when she is not sleeping. Covid testing is negative.She will be hospitalized for further care and evaluation. I did give her Toradol 10 mg IV. I did discuss case with the hospitalist and director of casework services. Impression & Plan Obstructed, uropathy, Renal colic, Intractable abdominal pain Discharge Plan Visit Data Chief Complaint: Abdominal Pain Stated Complaint: AB PAIN ED Provider: Preet Wilson Discharge Problem: Obstructed, uropathy, Renal colic, Intractable abdominal pain Patient Disposition: Admitted As Inpatient Discharge Instructions Interventions: ED Discharge Assessment Last Done: 08/26/20 19:08 Forms Stand Alone Forms: My [facility] [employer] Prescriptions Prescriptions: No Action metoprolol tartrate 50 mg tablet 50 mg PO BID Qty: 180 RF: 3 isosorbide mononitrate 120 mg tablet extended release 24 hr 120 mg PO QAM Qty: 90 RF: 3 metformin 500 mg tablet 500 mg PO BID Qty: 60 RF: 5 divalproex 500 mg tablet,delayed release (DR/EC) 500 mg PO BID Qty: 60 RF: 11 nitroglycerin 0.4 mg tablet, sublingual 0.4 mg sublingual UD PRN (Reason: Angina) Qty: 25 RF: 5 albuterol sulfate [ProAir HFA] 90 mcg/actuation HFA aerosol inhaler 2 puff INHALATION Q4 PRN (Reason: Shortness Of Breath) Qty: 6.7 RF: 5 atorvastatin 80 mg tablet 80 mg PO QAM RF: 0 lisinopril 5 mg tablet 5 mg PO QAM RF: 0 fluticasone propionate [Flonase Allergy Relief] 50 mcg/actuation [place],Suspension 1 spray INTRANASAL DAILY PRN (Reason: Allergy Symptoms) RF: 0 aspirin 81 mg Tablet,Delayed Release (Dr/Ec) 81 mg PO QAM RF: 0 Referrals Referrals: Misti Ferrer MD [Primary Care Provider] -
[2020-08-26 13:57] LABS: Basophils # (auto) 0.01 K/uL (0-0.2); Basophils % (auto) 0.1 %; Eosinophils # (auto) 0.15 K/uL (0-0.5); Eosinophils % (auto) 1.9 %; Hematocrit (blood only) 41.8 % (37-47); Hemoglobin 13.2 g/dL (12.0-16.0); Immature Granulocytes # (auto) 0.02 K/uL (0.00-0.02); Immature Granulocytes % (auto) 0.3 %; Lymphocytes # (auto) 2.74 K/uL (1.2-3.4); Lymphocytes % (auto) 35.1 %; Mean Corpuscular Hemoglobin 29.7 pg (25-34); Mean Corpuscular Hgb Conc 31.6 g/dL (32-36); Mean Corpuscular Volume 93.9 fL (80-100); Mean Platelet Volume 10.9 fL (7.4-10.4); Monocytes # (auto) 0.58 K/uL (0.11-0.59); Monocytes % (auto) 7.4 %; Neutrophils # (auto) 4.31 K/uL (1.4-6.5); Neutrophils % (auto) 55.2 %; Platelet Count 233 K/uL (130-400); RDW Coefficient of Variation 14.1 % (11.5-14.5); RDW Standard Deviation 48.3 fL (36.4-46.3); Red Blood Count 4.45 M/uL (4.2-5.4); White Blood Count 7.81 K/uL (4.8-10.8)
[2020-08-26 14:06] LABS: Partial Thromboplastin Ratio 0.9; Partial Thromboplastin Time 22.5 Seconds (21.0-31.0)
[2020-08-26] MEDS ORDERED: OPTIRAY 300 100mL IV ONE (14:13)
[2020-08-26 14:14] LABS: Albumin Level 3.7 gm/dl (3.4-5.0); BUN Creatinine Ratio 20.7 (10-20); Calcium 8.6 mg/dl (8.5-10.1); Creatinine Clr Calc Pharmacy 100.6 ml/min; Est GFR (African American) 94.6; Est GFR (Non-African American) 81.6; Potassium 3.9 mmol/L (3.5-5.1)
[2020-08-26 14:17] LABS: Albumin Globulin Ratio 1.1 (0.9-2); Bilirubin,Total 0.4 mg/dl (0.2-1); Globulin 3.4 gm/dl (2.5-4.0); Total Protein 7.1 gm/dl (6.4-8.2)
--- NOTE | 2020-08-26 15:15 | CT Scan Report ---
CT SCAN OF THE ABDOMEN AND PELVIS WITH IV CONTRAST CLINICAL HISTORY: Right lower quadrant abdominal pain. COMPARISON STUDY: Abdominal ultrasound dated 07/23/2011. TECHNIQUE: Following the IV administration of 89 cc of Optiray 300, CT scan of the abdomen and pelvi s is performed from the lung bases to the proximal femora. Images are reviewed in the axial, sagittal , and coronal planes. IV contrast was administered without complication. A dose lowering technique wa s utilized adhering to the principles of ALARA. CT DOSE: 1526.17 mGy.cm FINDINGS: Lung bases: The heart is normal in size and without pericardial effusion. The coronary arteries are d ensely calcified. There is a small hiatal hernia. Dependent airspace opacities are seen at both lung bases. Liver: The contrast-enhanced liver is normal in size, contour, and attenuation. There is no intrahepa tic biliary ductal dilatation. The hepatic veins and portal veins are patent. Gallbladder: Surgically absent noting clips in the gallbladder fossa. Spleen: Normal in size and attenuation. Pancreas: Moderately atrophic and grossly unremarkable. Adrenal glands: Unremarkable. Kidneys: The contrast enhanced kidneys demonstrate mild cortical atrophy. 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 There is a 2 mm obstructing calculus in the distal right ureter below the pelvic inlet seen on image #[id number]. This causes mild righ t hydroureteronephrosis. There is associated right-sided perinephric stranding. An additional 3 mm no nobstructing calculus is noted in the interpolar right kidney. The kidneys enhance homogeneously. The re is no left-sided hydronephrosis. Abdominal vasculature: The abdominal aorta is normal in course and caliber noting moderate to advance d atherosclerotic calcification. Bowel: There is no bowel obstruction. There are small duodenal diverticula. The appendix is well-vis ualized and normal. Peritoneum: There is no intraperitoneal free air or abdominal ascites. There is a fat-containing umbi lical hernia. Lymphadenopathy: None. Pelvic viscera: The bladder is decompressed and appears circumferentially thick walled. The uterus an d adnexa are normal as visualized. Skeletal structures: The skeletal structures are osteopenic. There is mild lumbosacral spondylosis. S clerotic change is noted in the sacroiliac joints. No lytic or blastic lesions are seen. IMPRESSION: 1. There is a 2 mm obstructing calculus in the distal right ureter below the pelvic inlet. This cause s mild right hydroureteronephrosis. 2. An additional 3 mm nonobstructing calculus is noted in the right kidney. 3. 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 4. Normal appendix. 5. Dependent airspace opacities are present both lung bases, likely represent scarring/atelectasis. C orrelate clinically for evidence of a superimposed infectious/inflammatory pneumonitis. 6. The bladder is decompressed and appears circumferentially thick walled. Correlate with urinalysis. 7. Additional findings as above. ACT 112: Negative or not required by law. Electronically signed by: Thompson Roberts M.D. 08/26/2020 3:13 PM
[2020-08-26 16:01] LABS: Appearance Urine Clear (Clear); Bacteria Urine Automated Negative (Negative); Bilirubin Urine Negative (Negative); Blood Urine Trace (Negative); Color Urine Yellow; Glucose Urine UA Negative (Negative); Ketones Urine Trace (Negative); Leukocyte Esterase Urine Negative (Negative); Nitrite Urine Negative (Negative); Protein Urine Negative (Negative); Specific Gravity Urine > 1.045 (1.000-1.030); Urobilinogen Urine Negative (Negative)
[2020-08-26] MEDS ORDERED: KETOROLAC 30 MG/ML VIAL IV STA (16:57)
[2020-08-26 18:10] LABS: Influenza A virus by PCR Negative (Neg); Influenza B virus by PCR Negative (Neg); RSV by PCR Negative (Neg); SARS CoV2 RNA(COVID-19) InHosp NEGATIVE (Negative)
--- NOTE | 2020-08-26 18:10 | History & Physical Report ---
Date of Service August 26, 2020 Assessment & Plan (1) Nephrolith: Patient with a right 2 mm stone causing hydronephrosis. Suspect stone will pass on its own without intervention Start IV hydration, pain control with nonsedating medications Start Flomax Patient asked to strain all urine Check KUB in the a.m., if stone still present and patient continues to have symptoms, would consider urology evaluation (2) Morphine overdose: Iatrogenic, causing some respiratory depression Avoid narcotic pain relief for now I did discuss with the patient to consider work-up for obstructive sleep apnea after discharge (3) Generalized epilepsy: Patient has not had a seizure many years, continue Depakote (4) Hypertension: Continue isosorbide, metoprolol, lisinopril (5) Type 2 diabetes mellitus: Hold metformin for 48 hours status post contrast CT We will order low sliding scale (6) Hyperlipidemia: Statin as ordered (7) Celiac disease: Diet controlled, avoid gluten (8) Coronary artery disease: Medications as ordered, not symptomatic today. On low-dose aspirin. History of Present Illness Primary Care Provider: Misti Ferrer MD This is a 64-year-old female with past medical history of coronary disease/previous RI, diabetes, COPD that presented initially complaining of right flank pain. Patient is a decent historian. Patient tells me that she woke up and felt good today. She went to the store and had a sensation of fecal urgency. However, when she used the restroom she only urinated. The sensation repeated itself after she returned home around noon. However, soon after urinating she started having of right flank pain which slowly worsened. She denies any abnormality to her urine and specifically denies hematuria or dysuria. The pain continued to worsen and then radiated down into her right groin. She does have a family history of kidney stones and became concerned. Patient presents to the emergency room for further evaluation. In the emergency room, she was found to have a 2 mm obstructing right nephrolithiasis. There is also a second 5 mm nonobstructing stone. Patient had significant pain and was given a total of 8 mg of morphine throughout her observation in the emergency room. ER physician was concerned as the patient became somewhat lethargic and required 3 L nasal cannula. She typically does not use home oxygen. During my interview, patient seemed slightly lethargic but was able to answer questions appropriately and give a detailed history. I did note that she was 96% on 3 L. She does feel that her pain is under control though she occasionally has a wave of right flank pain, even after medications. Allergies Allergy/AdvReac Type Severity Reaction Status Date / Time amoxicillin Allergy Intermediate RASH Verified 08/26/20 14:12 clavulanic acid Allergy Intermediate RASH Verified 08/26/20 14:12 hydrocodone Allergy Intermediate N/V/D AND Verified 08/26/20 14:12 ITCHY Sulfa (Sulfonamide Allergy Mild Rash Verified 08/26/20 14:12 Antibiotics) Home Medications Medication Instructions Recorded Confirmed Type aspirin 81 mg PO QAM 09/09/18 08/26/20 History fluticasone propionate [Flonase 1 spray INTRANASAL DAILY PRN 09/09/18 08/26/20 History Allergy Relief] nitroglycerin 0.4 mg sublingual 0.4 mg SUBLINGUAL UD PRN #25 tab 10/04/19 08/26/20 Rx tablet metoprolol tartrate 50 mg tablet 50 mg PO BID #180 tab 10/10/19 08/26/20 Rx albuterol sulfate 90 mcg/actuation 2 puff INHALATION Q4 PRN #6.7 gm 11/23/19 08/26/20 Rx aerosol inhaler isosorbide mononitrate 120 mg 120 mg PO QAM #90 tab 04/09/20 08/26/20 Rx tablet,extended release 24 hr metformin 500 mg tablet 500 mg PO BID #60 tab 04/11/20 08/26/20 Rx divalproex 500 mg tablet,delayed 500 mg PO BID #60 tab 05/21/20 08/26/20 Rx release atorvastatin 80 mg PO QAM 05/29/20 08/26/20 History lisinopril 5 mg PO QAM 05/29/20 08/26/20 History Past Med/Surg History Medical History Alcohol abuse sober 30 yrs Anxiety no meds Celiac disease diagnosed 2 yrs ago Chronic obstructive pulmonary disease rare res inh use Coronary artery disease follows Dr. 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 Sanchez Pulmonary emphysema Selective immunoglobulin A deficiency pt unaware Surgical History History of cardiac cath 2012--no stents placed History of cholecystectomy History of colonoscopy History of dilatation and curettage History of tooth extraction History of wisdom tooth extraction S/P left cataract extraction Family History Brother Family history of diabetes mellitus Myocardial infarction Hx of CABG Grandfather (Paternal) Family history of diabetes mellitus Myocardial infarction Heart disease Mother Ovarian cancer Father Parkinsons disease Gout Macular degeneration Other No family history of adverse response to anesthesia Denies family history of Prostate cancer Breast cancer Colorectal cancer Social History Smoking Status: Never smoker Second Hand Exposure: Yes ( smokes); Hx Alcohol Use: No Hx Substance Use: No Preferred Language: Congolese Communication Ability: Effective Evening Or Night Nurse Supervisor Required: No Beliefs That Will Affect Care: None marital status: Current Living Situation: Spouse Current Living Situation Comment: Lives with and daughter Feels Safe at Home: Yes Childhood Exposure to Second-Hand Smoke: No Assistive Devices: None Review of Systems Constitutional: no fever, no chills, no sweats, no body aches and no fatigue Ear, Nose, Mouth, Throat: as per Subjective / HPI Respiratory: no cough, no chest congestion, no change in sputum, no dyspnea, no dyspnea on exertion, no hemoptysis, no pain on inspiration and no sputum production Cardiovascular: no chest pain, no chest pain at rest, no chest pain with activity, no dyspnea and no dyspnea at rest Gastrointestinal: no abdominal pain, no bloating, no heartburn, no vomiting, no change in stools, no constipation and no diarrhea/loose stools Genitourinary: + urinary frequency, + urinary urgency and + flank pain; no dys uria, no difficulty urinating and no urinary hesitancy Musculoskeletal: + back pain; no neck pain, no radicular pain, no loss of height and no joint pain Integumentary: as per Subjective / HPI Neurologic: as per Subjective / HPI Psychiatric: as per Subjective / HPI Physical Exam Constitutional: + obese; no acute distress Respiratory: normal respiratory effort Auscultation: lungs clear to auscultation bilaterally Cardiovascular: Rate/Rhythm: regular rate Heart Sounds: normal S1 and normal S2 Extremities: no edema Gastrointestinal (Abdomen): Inspection/Auscultation: abdomen normal to inspection Percussion/Palpation: abdomen soft; abdomen nontender, no guarding and abdomen not rigid Musculoskeletal: no cyanosis or clubbing, extremities motor strength 5/5 Neurologic: PERRL, EOMI, accommodation nl, no face palsy, no dysarthria Psychiatric: A+Ox3, euthymic affect Genitourinary: + CVA tenderness (Right side) Results & Data Results & Data ([facility]) Vital Signs (Past 12 Hours) Vital Signs Temp Pulse Resp BP Pulse Ox 08/26/20 17:00 74 17 172/82 H 94 08/26/20 16:33 92 08/26/20 16:30 77 13 87 L 08/26/20 16:00 80 19 93 08/26/20 15:52 79 18 169/86 H 94 08/26/20 15:30 83 20 169/86 H 94 08/26/20 14:33 73 20 179/97 H 95 08/26/20 13:43 72 24 186/94 H 96 08/26/20 13:16 36.3 C L 76 20 181/110 H 96 PG Care Time/CCT Total # of Minutes Spent Total Time Spent with Patient: Total time spent is greater than 50% in coordination of care (as documented) at patient's floor/unit and/or counseling patient: Coding Level of Care Code 73411 OBS Care - Level 3 Diagnoses Nephrolith N20.0 Morphine overdose T40.2X1A Injury intent: accidental or unintentional Generalized epilepsy G40.309 Hypertension I10 Type 2 diabetes mellitus E11.9 Hyperlipidemia E78.5 Celiac disease K90.0 Coronary artery disease I25.10 (1) Morphine overdose Injury intent: accidental or unintentional
[2020-08-26] MEDS ORDERED: GLUCOSE 40% GEL 15 GM TUBE PO PRN (19:39)
[2020-08-26] MEDS ORDERED: NITROGLYCERIN SL 0.4 MG/TAB TAB SL PRN (19:39)
[2020-08-26] MEDS ORDERED: ONDANSETRON INJ 2 MG/ML 2 ML VIAL IV PRN (19:39)
[2020-08-26] MEDS ORDERED: ZOLPIDEM TARTRATE 5 MG TAB PO PRN (19:39)
[2020-08-26] MEDS ORDERED: CARBOHYDRATES FOR HYPOGLYCEMIA PO PRN (19:39)
[2020-08-26] MEDS ORDERED: KETOROLAC 30 MG/ML VIAL IV PRN (19:39)
[2020-08-26] MEDS ORDERED: GLUCAGON FOR INJ 1 MG VIAL SQ PRN (19:39)
[2020-08-26] MEDS ORDERED: GLUCOSE 10 TABS/TUBE PO PRN (19:39)
[2020-08-26] MEDS ORDERED: FLUTICASONE PROPIONATE NA SPR 16 GM BTL PRN (19:39)
[2020-08-26] MEDS ORDERED: DEXTROSE 50% 50 ML SYRINGE IV PRN (19:39)
[2020-08-26] MEDS ORDERED: ACETAMINOPHEN 325 MG TAB PO PRN (19:39)
[2020-08-26] MEDS ORDERED: ALBUTEROL HFA 8 GM INHALER INH PRN (19:45)
[2020-08-26] MEDS: SODIUM CHLORIDE 0.9% 1000ML 1,000 ML IV SCH (19:56)
[2020-08-26] MEDS ORDERED: TAMSULOSIN HCL 0.4 MG CAP PO SCH (21:00)
[2020-08-26] MEDS: DIVALPROEX DELAY RELEASE 500 MG TAB PO SCH (21:24)
[2020-08-26] MEDS: METOPROLOL TARTRATE 50 MG TAB PO SCH (21:27)
[2020-08-26] MEDS: INSULIN ASPART 100 UNITS/ML 3 ML PEN SC SCH (21:30)
[2020-08-27] MEDS: SODIUM CHLORIDE 0.9% 1000ML 1,000 ML IV SCH ×2 (06:00→16:18)
[2020-08-27 07:24] LABS: Basophils # (auto) 0.01 K/uL (0-0.2); Basophils % (auto) 0.1 %; Eosinophils # (auto) 0.01 K/uL (0-0.5); Eosinophils % (auto) 0.1 %; Hematocrit (blood only) 36.8 % (37-47); Hemoglobin 11.5 g/dL (12.0-16.0); Immature Granulocytes # (auto) 0.02 K/uL (0.00-0.02); Immature Granulocytes % (auto) 0.3 %; Lymphocytes # (auto) 2.11 K/uL (1.2-3.4); Lymphocytes % (auto) 28.9 %; Mean Corpuscular Hemoglobin 29.6 pg (25-34); Mean Corpuscular Hgb Conc 31.3 g/dL (32-36); Mean Corpuscular Volume 94.6 fL (80-100); Mean Platelet Volume 10.8 fL (7.4-10.4); Monocytes # (auto) 0.66 K/uL (0.11-0.59); Neutrophils # (auto) 4.49 K/uL (1.4-6.5); Neutrophils % (auto) 61.6 %; Platelet Count 189 K/uL (130-400); RDW Coefficient of Variation 14.4 % (11.5-14.5); RDW Standard Deviation 49.3 fL (36.4-46.3); Red Blood Count 3.89 M/uL (4.2-5.4)
[2020-08-27 07:57] LABS: BUN Creatinine Ratio 28.7 (10-20); Calcium 8.2 mg/dl (8.5-10.1); Creatinine Clr Calc Pharmacy 101.2 ml/min; Est GFR (African American) 94.6; Est GFR (Non-African American) 81.6; Magnesium 1.9 mg/dl (1.8-2.4); Potassium 4.4 mmol/L (3.5-5.1)
[2020-08-27] MEDS: INSULIN ASPART 100 UNITS/ML 3 ML PEN SC SCH ×3 (08:04→17:06)
--- NOTE | 2020-08-27 08:40 | XRay Report ---
KUB HISTORY: Follow up study in a patient with renal calculi f/u renal stone COMPARISON: CT abdomen pelvis 08/26/2020 FINDINGS: Nonobstructive bowel gas pattern. Cholecystectomy. Renal shadows are partially obscured by bowel gas. The known right nephrolithiasis distal right ureteral calculus is not definitively seen. V ascular calcifications of the pelvis. No renal calculi. No ureteral calculi. No pneumoperitoneum or pneumatosis. No fracture. IMPRESSION: The known right nephrolithiasis and distal right ureteral calculus are not definitively visualized. ACT 112: Negative or not required by law. The above report was generated using voice recognition software. It may contain grammatical, syntax o r spelling errors. Electronically signed by: Aaron Mcmanus M.D. 08/27/2020 8:39 AM
[2020-08-27] MEDS ORDERED: ASPIRIN 81 MG ECTAB PO SCH (09:00)
[2020-08-27] MEDS ORDERED: ISOSORBIDE MONO EXTENDED REL 60 MG TABCR PO SCH (09:00)
[2020-08-27] MEDS ORDERED: ATORVASTATIN 40 MG TAB PO SCH (09:00)
[2020-08-27] MEDS ORDERED: lisinopril 5 MG TAB PO SCH (09:00)
[2020-08-27] MEDS: DIVALPROEX DELAY RELEASE 500 MG TAB PO SCH (09:35)
[2020-08-27] MEDS: METOPROLOL TARTRATE 50 MG TAB PO SCH (09:52)
[2020-08-27] MEDS ORDERED: ACETAMINOPHEN 1000 MG/100 ML IV IV PRN (14:24)
[2020-08-27] MEDS ORDERED: PROMETHAZINE HCL 6.25 MG in SODIUM CHLORIDE 0.9% 50 ML IV PRN (14:26)
--- NOTE | 2020-08-27 14:33 | Hospitalist Progress Note ---
Date of Service August 27, 2020 Assessment & Plan (1) Nephrolith: Mrs. Sanz is a 64 yo woman admitted with right flank pain, found to have an obstructing R ureteral stone with mild hydronephrosis. She is being treated with conservative management (IVF and flomax) at this time. - right 2 mm obstructing stone with mild hydronephrosis and a right 5 mm non- obstructing stone noted on AP CT scan - KUB today showing no definitive evidence of stones, however patient continues to feel unwell - urology consulted, as patient has not yet passed stones with conservative management - continue IVF + flomax - zofran or Phenergan prn for nausea - pain medication prn (Toradol and IV tylenol) - strain all urine (2) Morphine overdose: - Iatrogenic, causing some respiratory depression - breathing now returned to baseline - for pain relief, we will use IV Tylenol and Toradol in an effort to avoid narcotic use. If pain remains uncontrolled, however we can add small dose of morphine (3) Generalized epilepsy: - continue home dose Depakote (4) Hypertension: - Continue home medication regimen of isosorbide, metoprolol, lisinopril (5) Type 2 diabetes mellitus: - Hold metformin for 48 hours status post [address] CT - continue low sliding scale insulin in interim (6) Hyperlipidemia: - continue home dose statin (7) Celiac disease: - Diet controlled, avoid gluten (8) Coronary artery disease: - continue home dose statin, aspirin, metoprolol, lisinopril and isosorbide DVT ppx: Lovenox 40mg SQ Diet: Gluten Free, Carb consistent DM2 Dispo: Downgraded to Med/Surg Code: Full Admission and Anticipated Discharge Date Admission Date: August 26, 2020 Review of Systems Gastrointestinal: + nausea and + vomiting Results & Data Results & Data ([facility]) Vital Signs (Past 12 Hours) Vital Signs Temp Pulse Pulse Resp BP Pulse Ox 08/27/20 10:52 36.6 C 77 18 131/77 92 08/27/20 08:00 80 08/27/20 07:43 36.9 C 81 18 102/65 92 08/27/20 05:47 77 08/27/20 03:37 36.5 C 77 18 123/72 90 Resident Activity Tracking Resident Involvement: Resident Care Provided Care Provided: Adult Hospital Medicine (1) Morphine overdose Injury intent: accidental or unintentional
[2020-08-27] MEDS ORDERED: ENOXAPARIN INJ 40 MG/0.4 ML SYR SQ SCH (15:00)
--- NOTE | 2020-08-27 15:12 | Urology Consultation ---
Date of Consultation August 27, 2020 Assessment & Plan (1) Right ureteral stone: 64 yo F with multiple comorbidities admitted for right flank pain secondary to a 2 mm obstructing right distal ureteral stone, mild hydronephrosis. - Hospital course, imaging, and lab work reviewed as well as past medical and surgical history - CT A/P reviewed and demonstrates an obstructing 2 mm right distal ureteral stone - Stone was not visualized on KUB this afternoon - Afebrile, lab work reviewed - creatinine 0.77, no leukocytosis, urine not suggestive of infection - Patient subjectively feeling better, no pain since this morning - Discussed options for stone management including trial of passage vs surgical intervention - Reviewed with her that her stone is a passable size - She elects trial of passage - No acute intervention today - Strain all urine - Okay to discharge from perspective for trial of passage and outpatient f/u when medically stable - If patient remains in hospital overnight, then can make her NPO at midnight for reassessment - She is agreeable with the plan, all questions answered Please consult our service urgently if patient develops fever >101F, intractable pain or nausea, as this will necessitate urgent surgical intervention. Thank you for the consultation and we will continue to monitor closely with primary service. History of Present Illness Reason for Consultation: 2mm obstructing stone on R, mild hydronephrosis Requesting Physician: Dr. Cohen Attending Physician: Solo Mercado DO History of Present Illness 64 year old female with PMHx of type 2 diabetes, COPD, pulmonary emphysema, hyperlipidemia, hypertension, CAD, depression, celiac disease admitted for right flank pain secondary to a 2 mm obstructing right distal ureteral stone, mild hydronephrosis. Patient presented to [facility] ED on 08/26/20 with c/o right flank pain radiating to her abdomen. She was afebrile on arrival. Lab work showed creatinine 0.77, no leukocytosis. UA 5-10 RBCs, WBC 1-5, 10-20 epithelials. No urine culture collected. COVID [address] A/P w/ IV con a 2 mm obstructing calculus in the distal right ureter with mild right hydroureteronephrosis. An additional 3 mm nonobstructing calculus is noted in the right kidney. She received IV fluid s, morphine, Ketorolac, and Ondansetron in ED. Of note, she became very drowsy and O2 saturation decreased on RA, placed on supplemental oxygen, felt to be secondary to opiates. She was admitted by hospital medicine. Our service is consulted for 2 mm obstructing stone on right, mild hydronephrosis. Chart review Afebrile Creatinine 0.77 WBC 7.30 Hgb 11.5 KUB 5/10 - the known right nephrolithiasis and distal right ureteral calculus are not definitively visualized. Patient seen and examined at bedside. She is sitting up and sleeping in bed, arouses easily to speech. No flank or abdominal pain at present. Denies stone passage. Denies dysuria or hematuria. She is voiding without difficulty. She had an episode of nausea and emesis this AM after breakfast. She tolerated her lunch. No nausea or vomiting at present. LBM yesterday. No fever or chills. No CP or SOB. This is her first stone. No prior urology evaluations. Reports family hx of stones - brother. No family hx of prostate, bladder or kidney cancer. No additional concerns today. Allergies Allergy/AdvReac Type Severity Reaction Status Date / Time amoxicillin Allergy Intermediate RASH Verified 08/26/20 14:12 clavulanic acid Allergy Intermediate RASH Verified 08/26/20 14:12 hydrocodone Allergy Intermediate N/V/D AND Verified 08/26/20 14:12 ITCHY Sulfa (Sulfonamide Allergy Mild Rash Verified 08/26/20 14:12 Antibiotics) Home Medications Medication Instructions Recorded Confirmed Type aspirin 81 mg PO QAM 09/09/18 08/26/20 History fluticasone propionate [Flonase 1 spray INTRANASAL DAILY PRN 09/09/18 08/26/20 History Allergy Relief] nitroglycerin 0.4 mg sublingual 0.4 mg SUBLINGUAL UD PRN #25 tab 10/04/19 08/26/20 Rx tablet metoprolol tartrate 50 mg tablet 50 mg PO BID #180 tab 10/10/19 08/26/20 Rx albuterol sulfate 90 mcg/actuation 2 puff INHALATION Q4 PRN #6.7 gm 11/23/19 08/26/20 Rx aerosol inhaler isosorbide mononitrate 120 mg 120 mg PO QAM #90 tab 04/09/20 08/26/20 Rx tablet,extended release 24 hr metformin 500 mg tablet 500 mg PO BID #60 tab 04/11/20 08/26/20 Rx divalproex 500 mg tablet,delayed 500 mg PO BID #60 tab 05/21/20 08/26/20 Rx release atorvastatin 80 mg PO QAM 05/29/20 08/26/20 History lisinopril 5 mg PO QAM 05/29/20 08/26/20 History Patient History Medical History Alcohol abuse sober 30 yrs Anxiety no meds Celiac disease diagnosed 2 yrs ago Chronic obstructive pulmonary disease rare res inh use Coronary artery disease follows Dr. 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 Sanchez Pulmonary emphysema Selective immunoglobulin A deficiency pt unaware Surgical History History of cardiac cath 2012--no stents placed History of cholecystectomy History of colonoscopy History of dilatation and curettage History of tooth extraction History of wisdom tooth extraction S/P left cataract extraction Family History Brother Family history of diabetes mellitus Myocardial infarction Hx of CABG Grandfather (Paternal) Family history of diabetes mellitus Myocardial infarction Heart disease Mother Ovarian cancer Father Parkinsons disease Gout Macular degeneration Other No family history of adverse response to anesthesia Denies family history of Prostate cancer Breast cancer Colorectal cancer Social History Smoking Status: Former smoker Second Hand Exposure: No; Do You Dip or Chew Tobacco: No; Tobacco Cessation Education Requested by Patient: No Hx Alcohol Use: Yes (Sober 30 years) Hx Substance Use: No Preferred Language: Croatian Communication Ability: Effective Personnel Administrator Required: No Beliefs That Will Affect Care: None marital status: Current Living Situation: Spouse Current Living Situation Comment: Lives with and daughter Other Information That Helps Us Care for You: No Feels Safe at Home: Yes Safety Concerns: Feels Safe At This Time Childhood Exposure to Second-Hand Smoke: No Assistive Devices: None Review of Systems Constitutional: as per Subjective / HPI Eyes: no problem reported Respiratory: no dyspnea Cardiovascular: no chest pain Gastrointestinal: as per Subjective / HPI Genitourinary: as per Subjective / HPI Musculoskeletal: no problem reported Integumentary: no problem reported Neurologic: no problem reported Psychiatric: no problem reported Endocrine: no problem reported Physical Exam Constitutional: well developed, well nourished and + obese; no acute distress and not ill appearing Eyes: no scleral abnormality Neck: normal visual inspection Respiratory: normal respiratory effort and able to speak in complete sentences; no respiratory distress and no labored breathing Cardiovascular: Extremities: no pedal edema Gastrointestinal (Abdomen): Inspection/Auscultation: abdomen normal to inspection; abdomen not distended Percussion/Palpation: abdomen soft; abdomen nontender and no guarding Musculoskeletal: Head/Neck/Chest: normocephalic and head atraumatic Skin: no rashes, warm and dry Neurologic: moves all extremities and awake Psychiatric: Orientation: alert and oriented x 3 Genitourinary: no CVA tenderness Results & Data ([facility]) Vital Signs (Past 12 Hours) Vital Signs Temp Pulse Pulse Resp BP Pulse Ox 08/27/20 10:52 36.6 C 77 18 131/77 92 08/27/20 08:00 80 08/27/20 07:43 36.9 C 81 18 102/65 92 08/27/20 05:47 77 08/27/20 03:37 36.5 C 77 18 123/72 90 PG Care Time/CCT Total # of Minutes Spent Total Time Spent with Patient: Total time spent is greater than 50% in coordination of care (as documented) at patient's floor/unit and/or counseling patient: Coding Level of Care Code 71911 Inpt Consult Level 4 Diagnoses Right ureteral stone N20.1
--- NOTE | 2020-08-27 17:10 | Discharge Summary ---
Date of Service August 27, 2020 Admission HPI Per Admitting Provider This is a 64-year-old female with past medical history of coronary disease/previous ID, diabetes, COPD that presented initially complaining of right flank pain. Patient is a decent historian. Patient tells me that she woke up and felt good today. She went to the store and had a sensation of fecal urgency. However, when she used the restroom she only urinated. The sensation repeated itself after she returned home around noon. However, soon after urinating she started having of right flank pain which slowly worsened. She denies any abnormality to her urine and specifically denies hematuria or dysuria. The pain continued to worsen and then radiated down into her right groin. She does have a family history of kidney stones and became concerned. Patient presents to the emergency room for further evaluatio n. In the emergency room, she was found to have a 2 mm obstructing right nephrolithiasis. There is also a second 5 mm nonobstructing stone. Patient had significant pain and was given a total of 8 mg of morphine throughout her observation in the emergency room. ER physician was concerned as the patient became somewhat lethargic and required 3 L nasal cannula. She typically does not use home oxygen. During my interview, patient seemed slightly lethargic but was able to answer questions appropriately and give a detailed history. I did note that she was 96% on 3 L. She does feel that her pain is under control though she occasionally has a wave of right flank pain, even after medications. Admission Exam Per Admitting Provider Constitutional: + obese; no acute distress Respiratory: normal respiratory effort Auscultation: lungs clear to auscultation bilaterally Cardiovascular: Rate/Rhythm: regular rate Heart Sounds: normal S1 and normal S2 Extremities: no edema Gastrointestinal (Abdomen): Inspection/Auscultation: abdomen normal to inspection Percussion/Palpation: abdomen soft; abdomen nontender, no guarding and abdomen not rigid Musculoskeletal: no cyanosis or clubbing, extremities motor strength 5/5 Neurologic: PERRL, EOMI, accommodation nl, no face palsy, no dysarthria Psychiatric: A+Ox3, euthymic affect Genitourinary: + CVA tenderness (Right side) Principal Diagnosis Nephrolithiasis Discharge Exam Constitutional WD/WN, vitals as above cooperative; no acute distress Eyes + anicteric sclerae ENMT external ear and nose normal, oropharynx normal Neck normal visual inspection and trachea midline Respiratory normal respiratory effort, lungs clear to auscultation Cardiovascular RRR, no murmur, no edema Gastrointestinal (Abdomen) normal bowel sounds, soft, nontender, no hepatosplenomegaly No CVA tenderness Skin no rashes, warm and dry Psychiatric A+Ox3, euthymic affect Discharge Data Allergies Allergy/AdvReac Type Severity Reaction Status Date / Time amoxicillin Allergy Intermediate RASH Verified 08/26/20 14:12 clavulanic acid Allergy Intermediate RASH Verified 08/26/20 14:12 hydrocodone Allergy Intermediate N/V/D AND Verified 08/26/20 14:12 ITCHY Sulfa (Sulfonamide Allergy Mild Rash Verified 08/26/20 14:12 Antibiotics) Consultations 08/26/20 16:57 ED Decision to Admit Stat 08/27/20 14:22 Consult Urology Routine Ordered Studies 08/26/20 13:27 CT abd pelvis IV con only Stat Hospital Course (1) Nephrolith: Mrs. Sanz is a 64 yo woman admitted with right flank pain, found to have an obstructing R ureteral stone with mild hydronephrosis. She was treated with conservative management (IVF and flomax) during her hospital stay. Urology was consulted and recommend no surgical intervention, anticipate stones passing spontaneously. - right 2 mm obstructing stone with mild hydronephrosis and a right 5 mm non- obstructing stone noted on AP CT scan - KUB today showing no definitive evidence of stones, however patient continues to feel unwell - patient was treated with IVF + flomax - discharged with a script of zofran for nausea and percocet for breakthrough pain - strain all urine. If she is able to capture stone, it can be brought in for analysis (2) Morphine overdose: - Iatrogenic (8mg IV morphine given in ED), causing some respiratory depression - breathing now returned to baseline - for pain relief, we will use Tylenol and Ibuprofen in an effort to avoid narcotic use. If pain remains uncontrolled, she can use Percoet (3) Generalized epilepsy: - continue home dose Depakote (4) Hypertension: - Continue home medication regimen of isosorbide, metoprolol, lisinopril (5) Type 2 diabetes mellitus: - Hold metformin for 48 hours status post contrast CT - continue low sliding scale insulin in interim (6) Hyperlipidemia: - continue home dose statin (7) Celiac disease: - Diet controlled, avoid gluten (8) Coronary artery disease: - continue home dose statin, aspirin, metoprolol, lisinopril and isosorbide Total Time Total Time Spent Total Time Spent (In Minutes): <30 Discharge Plan Discharge Items Patient Disposition: Home - Self-Care Reason For Visit: RENAL STONE, HYPOXIA Discharge Diagnosis: Kidney stone Activity: Resume your previous activity Non-emergency contact: Primary Care Provider Call non-emergency contact if: your symptoms worsen Follow-up/Referrals: Misti Ferrer MD [Primary Care Provider] - Diet: Carb Consistent or DM2 Addtl Attending Provider Instructions: You were hospitalized at [facility] for evaluation of right sided flank pain. A cat scan of your abdomen was ordered and showed two kidney stones in your right ureter. One was 2mm and obstructing the flow of urine - and the other was 5mm. The ureter is a tube that connects the kidney to the bladder. Urine then exits the bladder via a tube called the urethra. You were treated with IV fluids and a medication known as flomax. Flomax works to dilate the smooth muscle that lines the ureters (facilitates stone passing). Urology was consulted and felt as though both your stones would likely pass on their own without surgical intervention. We recommend you continue to strain your urine at home to collect any stone fragments. The fragments can then be analyzed at the lab - knowing their composition can be of use to you (ie you will learn how to modify your diet to prevent future stones). We recommend you continue to take Flomax, 0.4mg, daily for the next 7 days. We also suggest you stay well hydrated - please try to drink 60-80 ounces of water per day. For ongoing pain, you may use Tylenol or Ibuprofen (dose according to instructions on medication bottle). If your pain is not controlled with Tylenol and Ibuprofen, we have provided you a script of Perocet to use for breakthrough discomfort. We also sent a script of a medication called zofran to use when you feel nauseated. If your pain is such that you cannot get comfortable even with the Percocet, please return to the emergency department. Please follow up with your family doctor within 1 week of your discharge. Pending Studies at Discharge: No Stand-Alone Forms: My [facility] [employer], Smoking Cessation Medications and DC Order Prescriptions: New tamsulosin 0.4 mg Capsule 0.4 mg PO HS 7 Days Qty: 7 RF: 0 ondansetron HCl [Zofran] 4 mg tablet 4 mg PO Q6H PRN (Reason: nausea and vomiting) 4 Days Qty: 14 RF: 0 oxycodone-acetaminophen [Endocet] 5-325 mg tablet 1 tab PO Q6H PRN (Reason: pain, severe) Qty: 5 RF: 0 Continued metoprolol tartrate 50 mg tablet 50 mg PO BID Qty: 180 RF: 3 isosorbide mononitrate 120 mg tablet extended release 24 hr 120 mg PO QAM Qty: 90 RF: 3 metformin 500 mg tablet 500 mg PO BID Qty: 60 RF: 5 divalproex 500 mg tablet,delayed release (DR/EC) 500 mg PO BID Qty: 60 RF: 11 nitroglycerin 0.4 mg tablet, sublingual 0.4 mg sublingual UD PRN (Reason: Angina) Qty: 25 RF: 5 albuterol sulfate [ProAir HFA] 90 mcg/actuation HFA aerosol inhaler 2 puff INHALATION Q4 PRN (Reason: Shortness Of Breath) Qty: 6.7 RF: 5 atorvastatin 80 mg tablet 80 mg PO QAM RF: 0 lisinopril 5 mg tablet 5 mg PO QAM RF: 0 fluticasone propionate [Flonase Allergy Relief] 50 mcg/actuation [place],Suspension 1 spray INTRANASAL DAILY PRN (Reason: Allergy Symptoms) RF: 0 aspirin 81 mg Tablet,Delayed Release (Dr/Ec) 81 mg PO QAM RF: 0 Discharge Orders: Discharge Order (Routine); Ordered 08/27/20 Ordered By: Rossy Garg/Other Patient Handouts: Understanding Kidney Stones, Identifying Kidney Stones, Preventing Kidney Stones Admission Data Admit Date/Time: 08/26/20 18:29 Attending Provider: Solo Mercado Admit Provider: Jose Cooper Primary Care Provider: Misti Ferrer Other Providers: Jose Cooper ; Delroy Galindo Other Interventions: Discharge Summary Assessment (RN) Last Done: 08/27/20 17:08 Supervising Physician Co-Signing Physician Notes I personally examined the patient and verified all pizarro points of history and exam, discussed case, and agree with decision making with Dr Cohen Feeling better. No significant pain. Nausea vomiting has improved. Ate about half of her tray for lunch. Feels like she would very much like to go home. Discussed options. Vitals noted, in general she is awake and alert pleasant no distress. HEENT normocephalic atraumatic mucous membranes are moist. Breathing unlabored no accessory muscle use good effort. Skin shows no rashes no pallor or icterus. No CVA tenderness. Pain/intractable nausea and vomiting related to ureterolithiasis/mild hydronephrosisfortunately fairly small stone, symptomatically it may have passed. Radiographically is hard to tell. Either way stable for home/expectant management/medical management. Follow-up if worsens/pain uncontrolled/symptoms do not resolve. Otherwise as above Resident Activity Tracking Resident Involvement: Resident Care Provided Care Provided: Adult [facility]
--- NOTE | 2020-08-27 17:42 | Billing Data ---
Date of Service August 27, 2020 Coding Level of Care Code 95957 OBS Care - Discharge
== END 2020-08-27 17:48 | disposition home or self-care (01) ==
LOC: 2S 13:13 → ED 13:13 → SUATTDRO 18:29 → 2S 19:08 → 3N 08-27 10:48